=== PATIENT | male | born 1945 | race Caucasian/White ===

== ENCOUNTER → 2018-12-28 | Outpatient (CLI) | payer MEDICARE, OTHER ==
[~2018-12-28] MED LIST: Amlodipine Besy10 MG PO; Aspirin EC81 MG PO; CLOB.05TC TOP; Co Q-10300 MG PO; Depo-Testo100 MG/1 M IM; ETOD400CR; GLUCOSAMINE MS PO; HYDCHL12.5 PO; IMITREX SQ; Itraconazole100 MG PO; LISI20 PO; LUTEIN-ZEAXANT1 EACH PO; Omeprazole20 M1; Prednisolone Ace5 ML; QUET100 PO; Sm Glucosamine1 EACH PO; TRAM50 PO; Terazosin HCl10 MG PO; VITAMIN D35000 UNIT PO
== END | disposition home or self-care (01) ==
LOC: LAB SHORT 11:31 → LAB SRC 11:31
DX: R10.11 Right upper quadrant pain (principal)
CPT/HCPCS: 87338

== ENCOUNTER 2019-02-02 21:09 | Emergency (ER) | payer MEDICARE, OTHER ==
[~2019-02-02] VITALS: Ht 182.9 cm; Wt 90.7 kg
[2019-02-02 21:53] LABS: BASOPHILS ABSOLUTE AUTO 0.05 K/mm3 (0.00-0.23); BASOPHILS PERCENT AUTO 1 % (0-2); EOSINOPHILS ABSOLUTE AUTO 0.42 K/mm3 (0.00-0.68); EOSINOPHILS PERCENT AUTO 5 % (0-6); Hematocrit 50.3 % (37.0-53.0); Hemoglobin 16.7 g/dL (13.5-17.5); IMMATURE GRAN ABSOLUTE AUTO 0.05 K/mm3 (0.00-0.10); IMMATURE GRAN PERCENT AUTO 1 % (0-1); LYMPHOCYTES PERCENT AUTO 15 % (21-46); MONOCYTES ABSOLUTE AUTO 0.87 K/mm3 (0.16-1.47); MONOCYTES PERCENT AUTO 10 % (4-13); Mean Corpuscular HGB 30.9 pg (26.0-34.0); Mean Corpuscular HGB Conc 33.2 g/dL (31.5-36.5); Mean Corpuscular Volume 93 fL (80-100); Mean Platelet Volume 9.6 fL (9.1-12.4); NEUTROPHILS ABSOLUTE AUTO 6.14 K/mm3 (1.96-9.15); NEUTROPHILS PERCENT AUTO 69 % (41-73); Platelet Count 185 K/mm3 (150-400); RDW Coefficient Variation 13.1 % (11.7-14.2); RDW Standard Deviation 45.1 fL (35.1-46.3); White Blood Cell Count 8.83 K/mm3 (4.00-11.30)
[2019-02-02] MEDS ORDERED: FINA5 PO (22:11)
[2019-02-02] MEDS ORDERED: TRAZ100 PO (22:11)
[2019-02-02] MEDS ORDERED: TAMS.4ER PO (22:12)
[2019-02-02] MEDS ORDERED: BUSP15 PO (22:12)
[2019-02-02] MEDS ORDERED: ASPI81CH PO (22:13)
[2019-02-02 22:15] LABS: Alanine Aminotransfer (ALT/SGP 31 U/L (12-78); Albumin, Blood 3.7 g/dL (3.4-5.0); Albumin/Globulin Ratio 1.1 (0.8-1.8); Alk Phos 119 U/L (50-136); Anion Gap 7 mmol/L (6-16); Aspartate Aminotrans (AST/SGOT 25 U/L (12-37); Bilirubin, Total 0.4 mg/dL (0.1-1.0); Blood Urea Nitrogen 44 mg/dL (8-24); Bun/Creatinine Ratio 42.7 (12.0-20.0); CO2, Blood 28 mmol/L (21-32); Calcium, Blood 9.6 mg/dL (8.5-10.1); Chloride, Blood 106 mmol/L (98-108); Creatinine, Blood 1.03 mg/dL (0.60-1.20); Globulin, Blood 3.4 g/dL (2.2-4.0); Glomerular Filtration Rate >60 (60-); Glucose, Blood 119 mg/dL (70-99); Potassium, Blood 3.9 mmol/L (3.5-5.5); Sodium, Blood 141 mmol/L (136-145); Total Protein, Blood 7.1 g/dL (6.4-8.2); Troponin I 0.018 ng/mL (0.000-0.040)
== END 2019-02-03 01:16 | disposition home or self-care (01) ==
LOC: ER 21:09
PROVIDERS: Physician Assistant
DX: R00.2 Palpitations (principal); Z88.8 Allergy status to other drugs, medicaments and biological substances; Z79.899 Other long term (current) drug therapy; Z79.82 Long term (current) use of aspirin; Z79.52 Long term (current) use of systemic steroids; G43.909 Migraine, unspecified, not intractable, without status migrainosus
CPT/HCPCS: 36415; 71046; 80053; 84484; 85025; 93005; 93010; 96360; 99285-25; J7030

== ENCOUNTER 2020-11-17 09:08 | Day surgery (SDC) | payer OTHER, SELFPAY ==
[~2020-11-17] VITALS: Ht 182.9 cm; Wt 101.3 kg
[~2020-11-17 09:08] MED LIST changes: +ASPI81CH PO; +BUSP15 PO; +Cymbalta20 MG PO; +FINA5 PO; +TAMS.4ER PO; +TERA5 PO; +TRAZ100 PO
[2020-11-17] MEDS ORDERED: ITRA100 PO (09:35)
[2020-11-17] MEDS ORDERED: CHLO25B PO (09:35)
[2020-11-17] MEDS ORDERED: Terazosin HCl10 MG PO (09:36)
[2020-11-17] MEDS ORDERED: OCUVITE BLUE L1 EACH PO (09:36)
[2020-11-17] MEDS ORDERED: ROSU5 PO (09:46)
[2020-11-17] MEDS ORDERED: METO25ER PO (09:46)
[2020-11-17] MEDS ORDERED: CELE100 PO (09:54)
--- NOTE | 2020-11-17 11:10 | NUR ---
TO RECOVERY ROOM VIA [facility]. PT AWAKE AND ALERT. RIGHT GROIN SITE SOFT, NONTENDER, NO BLEEDING AT SITE. TR BAND INTACT RIGHT RADIAL WITH 12 CC AIR. CIRCULATION, MOTION, SENSATION NORMAL.
--- NOTE | 2020-11-17 14:35 | NUR ---
PT UP TO BATHROOM, GROIN SITE STABLE. R RADIAL SITE STABLE. PT GETTING DRESSED PER SELF.
--- NOTE | 2020-11-17 14:53 | NUR ---
TR BAND REMOVED, DRESSING PLACED TO R RADIAL SITE, R WRIST SPLINT PLACED, IV DC'D INTACT, PT DRESSED, HERE AND PT DC'D BY WC BY RN, DRIVING PT HOME, DC INSTRUCTIONS GIVEN
== END 2020-11-17 15:00 | disposition home or self-care (01) ==
LOC: MHTC 09:08
DX: I25.119 Atherosclerotic heart disease of native coronary artery with unspecified angina pectoris (principal); I11.0 Hypertensive heart disease with heart failure; I50.9 Heart failure, unspecified; N40.0 Benign prostatic hyperplasia without lower urinary tract symptoms; J43.9 Emphysema, unspecified; K21.9 Gastro-esophageal reflux disease without esophagitis; G43.909 Migraine, unspecified, not intractable, without status migrainosus; E66.9 Obesity, unspecified; M19.90 Unspecified osteoarthritis, unspecified site; Z85.820 Personal history of malignant melanoma of skin; Z79.82 Long term (current) use of aspirin; Z68.30 Body mass index [BMI] 30.0-30.9, adult
CPT/HCPCS: 76937; 93458; 99152; 99153; C1760; C1769; C1894; J1644; J2250; J3010; J7030; J7050; Q9967

== ENCOUNTER 2023-09-09 11:22 | Emergency (ER) | payer OTHER ==
[~2023-09-09] VITALS: Ht 182.9 cm; Wt 110.7 kg
[~2023-09-09 11:22] MED LIST changes: +CELE100 PO; +CHLO25B PO; +ITRA100 PO; +METO25ER PO; +OCUVITE BLUE L1 EACH PO; +ROSU5 PO
[2023-09-09 11:31] VITALS: BP 144/86
== END 2023-09-09 12:52 | disposition home or self-care (01) ==
LOC: ER 11:22
DX: M54.50 Low back pain, unspecified (principal); G89.29 Other chronic pain; Z88.8 Allergy status to other drugs, medicaments and biological substances; Z79.899 Other long term (current) drug therapy; Z79.82 Long term (current) use of aspirin; G43.909 Migraine, unspecified, not intractable, without status migrainosus
CPT/HCPCS: 99283

== ENCOUNTER 2025-02-18 08:48 | Day surgery (SDC) | payer OTHER ==
[~2025-02-18] VITALS: Ht 182.9 cm; Wt 104.2 kg
[~2025-02-18 08:48] MED LIST changes: +Lidocaine HCl 2% 10 ML SDA ONE
[2025-02-18] MEDS ORDERED: NS 100 ML IV ONE (09:11)
[2025-02-18] MEDS ORDERED: CeFAZolin Sodium 2,000 MG VIAL ONE (09:18)
[2025-02-18] MEDS ORDERED: JARDIANCE10 MG PO (09:32)
[2025-02-18] MEDS ORDERED: SPIR25 PO (09:33)
[2025-02-18] MEDS ORDERED: ELIQUIS5 M2 PO (09:34)
[2025-02-18] MEDS ORDERED: BUTRANS1 EAC9 TD (09:35)
[2025-02-18] MEDS ORDERED: SERT100 PO (09:36)
[2025-02-18] MEDS ORDERED: Neurontin 300300 MG PO (09:36)
[2025-02-18] MEDS ORDERED: SOAANZ20 M2 (09:37)
[2025-02-18] MEDS ORDERED: EZET10 PO (09:37)
[2025-02-18] MEDS ORDERED: PRALUENT P75 MG/1 ML SQ (09:37)
[2025-02-18] MEDS ORDERED: FERROUS GLUCON324 M7 PO (09:38)
[2025-02-18] MEDS ORDERED: DEPO-TESTO200 MG/1 M IM (09:38)
[2025-02-18] MEDS ORDERED: C-500500 M1 PO (09:39)
[2025-02-18] MEDS ORDERED: ALBU90OI INH (09:39)
[2025-02-18] MEDS ORDERED: MULTI-VITAMIN1 EAC2 PO (09:40)
[2025-02-18] MEDS ORDERED: NITROGLYCERIN TL (09:40)
[2025-02-18] MEDS ORDERED: RIVIVE3 MG NS (09:40)
[2025-02-18] MEDS ORDERED: CLOBETASOL EMOL15 G1 (09:41)
[2025-02-18] MEDS ORDERED: AZELASTINE137 MCG/01 (09:41)
[2025-02-18] MEDS ORDERED: KETO15TC TOP (09:41)
[2025-02-18] MEDS ORDERED: SUMA25 PO (09:41)
[2025-02-18] MEDS ORDERED: REPATHA SU140 MG/1 M SQ (09:43)
[2025-02-18] MEDS ORDERED: LORA10ER PO (09:44)
[2025-02-18] MEDS ORDERED: VITAMIN D5000 UNIT PO (09:44)
[2025-02-18] MEDS ORDERED: FISH OIL 1,0001 EA10 PO (09:44)
[2025-02-18] MEDS ORDERED: COQ1050 MG PO (09:45)
[2025-02-18] MEDS ORDERED: Docusate Sodiu250 MG PO (09:45)
[2025-02-18] MEDS ORDERED: ACET500 PO (09:45)
[2025-02-18] MEDS ORDERED: SENOKOT8.7 MG PO (09:46)
[2025-02-18] MEDS ORDERED: Dexamethasone Sod Phos 10 MG/ML 1ML VIAL ONE (10:24)
[2025-02-18] MEDS ORDERED: FentaNYL Citrate 50 MCG/ML 2 ML Injection ONE (10:24)
[2025-02-18] MEDS ORDERED: Midazolam HCl 1MG / ML 2ML Vial ONE (10:24)
[2025-02-18] MEDS ORDERED: Ondansetron HCl 2 MG / ML 2ML Vial ONE (10:24)
[2025-02-18] MEDS ORDERED: Ipratropium/Albuterol SulF 2.5-0.5MG/3 ML Amp ONE (10:45)
[2025-02-18] MEDS ORDERED: Citric Acid/Sodium Citrate 30 ML BTL ONE (10:45)
--- NOTE | 2025-02-18 11:38 | NUR ---
02/18/[address] AT BEDSIDE
[2025-02-18 11:47] VITALS: BP 122/85
--- NOTE | 2025-02-18 11:48 | NUR ---
02/18/25 1148 Sumaya Adkins HANDOFF TO ROLDAN SCOTT
== END 2025-02-18 12:27 | disposition home or self-care (01) ==
LOC: ORSCSDS 08:48
PROVIDERS: Orthopaedic Surgery
PROC: 01N40ZZ Release Ulnar Nerve, Open Approach (ICD-10-PCS; principal; 2025-02-18 10:30)
DX: G56.22 Lesion of ulnar nerve, left upper limb (principal); I10 Essential (primary) hypertension; I25.10 Atherosclerotic heart disease of native coronary artery without angina pectoris; I48.91 Unspecified atrial fibrillation; Z79.01 Long term (current) use of anticoagulants; I50.9 Heart failure, unspecified; Z79.899 Other long term (current) drug therapy; G47.33 Obstructive sleep apnea (adult) (pediatric); K21.9 Gastro-esophageal reflux disease without esophagitis; E66.9 Obesity, unspecified; Z68.33 Body mass index [BMI] 33.0-33.9, adult
CPT/HCPCS: A9270; J0690; J1100; J2003; J2250; J2405; J2704; J3010; J7120